=== PATIENT | male | born 1995 | race Two or more races ===

== ENCOUNTER 2024-04-21 14:33 | Emergency (ER) | payer SELFPAY ==
[~2024-04-21] VITALS: Ht 182.9 cm; Wt 88.2 kg
[2024-04-21 14:58] VITALS: BP 130/86; RESP 18; O2SAT 97
[2024-04-21] MEDS ORDERED: HYDROcodone-ACET 5/325MG TAB PO ONE (15:15)
[2024-04-21] MEDS ORDERED: ACET500T58 PO (19:07)
[2024-04-21] MEDS ORDERED: IBUP-1456 PO (19:07)
== END 2024-04-21 20:53 | disposition home or self-care (01) ==
LOC: ER 14:33
DX: S16.1XXA Strain of muscle, fascia and tendon at neck level, initial encounter (principal); S00.83XA Contusion of other part of head, initial encounter; W18.39XA Other fall on same level, initial encounter; Y93.89 Activity, other specified; Y92.89 Other specified places as the place of occurrence of the external cause; Y99.8 Other external cause status
CPT/HCPCS: 70450; 72125